=== PATIENT | male | born 1975 | race Caucasian/White ===

== ENCOUNTER 2016-12-28 09:53 | Emergency (ER) | payer BC ==
--- NOTE | 2016-12-28 10:24 | Emergency Department Report ---
Entered by MEI PASTOR, acting as scribe for ALMA VAZ PA. Chief Complaint: Chest Pain Stated Complaint: CHEST PAIN Time Seen by Provider: 12/28/16 10:12 - HPI History of Present Illness: Patient presents to the ED c/o intermittent chest pain that began 10 days ago. Denies any cough currently with chest pain. Took Pepto-Bismol with no relief. Lt side pain. HIV positive - ROS Review of Systems: All system are negative unless stated in HPI above. - Exam Vital Signs: Vital Signs 12/28/16 10:04 Temperature 97.6 F Pulse Rate 58 L Respiratory 20 Rate Blood Pressure 131/84 O2 Sat by Pulse 100 Oximetry Physical Exam: General: well nourished, well deverloped, nontoxic in appearance, in no acute distress Respiratory: lungs clear and equal bilaterally Cardiovasuclar: S1/S2 regular rate and rhythm. No murmur. MSE screening note: Focused history and physical exam performed. Due to findings the following was ordered: ED Medical Decision Making - Medical Decision Making Medical decision making: Patient seen by provider in triage area. Appropriate protocol activated and patient to main ED to be seen by provider ED Disposition for MSE Condition: Stable This documentation as recorded by the scribe,MEI PASTOR,accurately reflects the service I personally performed and the decisions made by me,ALMA VAZ PA.
[2016-12-28 10:37] LABS: Basophils % (Auto) 0.2 % (0.0-1.8); Hematocrit 45.4 % (35.5-45.6); Hemoglobin 14.7 gm/dl (11.8-15.2); Mean Corpuscular HGB Conc 32 % (32-34); Mean Corpuscular Hemoglobin 29 pg (28-32); Mean Corpuscular Volume 90 fl (84-94); Platelet Count 348 K/mm3 (140-440); Red Blood Count 5.07 M/mm3 (3.65-5.03); Red Cell Distribution Width 13.1 % (13.2-15.2); White Blood Count 13.5 K/mm3 (4.5-11.0)
[2016-12-28 10:48] LABS: Anion Gap 17 mmol/L; BUN/Creatinine Ratio 12.85; Blood Urea Nitrogen 9 mg/dL (9-20); Calcium 9.1 mg/dL (8.4-10.2); Carbon Dioxide 24 mmol/L (22-30); Chloride 100.4 mmol/L (98-107); Glucose 144 mg/dL (75-100); Lipase 32 units/L (13-60); Potassium 4.4 mmol/L (3.6-5.0); Sodium 137 mmol/L (137-145)
[2016-12-28 10:49] LABS: Creatine Kinase MB < 1.0 ng/mL (0.0-4.0)
[2016-12-28 10:51] LABS: Creatine Kinase 64 units/L (55-170)
--- NOTE | 2016-12-28 10:52 | XRay Report ---
ROUTINE CHEST, TWO VIEWS: HISTORY: Chest pain, HIV. The trachea, heart, mediastinal contour, lung romero and bony thorax are unremarkable. IMPRESSION: Unremarkable chest x-ray.
[2016-12-28] MEDS ORDERED: ZOFRAN IV ONE (12:58)
[2016-12-28] MEDS ORDERED: MORPHINE IV ONE (12:58)
[2016-12-28] MEDS ORDERED: NACL ONE (13:01)
--- NOTE | 2016-12-28 13:14 | Emergency Department Report ---
ED General Adult HPI - General Chief complaint: Chest Pain Stated complaint: CHEST PAIN Time Seen by Provider: 12/28/16 10:14 Source: patient Mode of arrival: Ambulatory Limitations: No Limitations - History of Present Illness Initial comments: 41-year-old male presents to the emergency department complaining of chest pain. Initially the patient stated he has been having cough and chest pain for the past 10 days. He was recently prescribed medication for his cough. Patient states that the cough has resolved. He states he began having left- sided abdominal pain at 4 AM this morning. He states the pain radiates into his left chest. He describes a pounding sensation. He reports associated nausea and vomiting this morning. There has been no shortness of breath, diaphoresis, dizziness, or diarrhea. There are no other complaints. -: Sudden, This morning Time: 04:00 Location: abdomen Radiation: other (chest) Severity scale (0 -10): 7 Quality: other (pounding) Consistency: constant Improves with: none Worsens with: none Associated Symptoms: nausea/vomiting Treatments Prior to Arrival: none - Related Data Home Medications Medication Instructions Recorded Confirmed Last Taken Benzonatate [Tessalon Perles] 100 mg PO Q8HR PRN 12/28/16 12/28/16 12/27/16 100 Efavirenz/Emtricita/Tenofo(Nf) 1 each PO DAILY 12/28/16 12/28/16 Unknown [Atripla (Nf)] Previous Rx's Medication Instructions Recorded Last Taken Type HYDROcodone/APAP 5-325 [[place] 1 each PO Q6HR PRN #20 tablet 12/28/16 Unknown Rx 5/325] Allergies Allergy/AdvReac Type Severity Reaction Status Date / Time No Known Allergies Allergy Unverified 12/28/16 10:03 ED Review of Systems ROS: Stated complaint: CHEST PAIN Other details as noted in HPI Comment: All other systems reviewed and negative Cardiovascular: chest pain Gastrointestinal: abdominal pain, nausea, vomiting ED Past Medical Hx - Past Medical History Previous Medical History?: Yes Hx HIV: Yes - Surgical History Past Surgical History?: No - Family History Family history: no significant - Social History Smoking Status: Never Smoker Substance Use Type: Prescribed - Medications Home Medications: Home Medications Medication Instructions Recorded Confirmed Last Taken Type Benzonatate [Tessalon Perles] 100 mg PO Q8HR PRN 04/12/28/16 12/27/16 History 100 Efavirenz/Emtricita/Tenofo(Nf) 1 each PO DAILY 12/28/16 12/28/16 Unknown History [Atripla (Nf)] HYDROcodone/APAP 5-325 [[place] 1 each PO Q6HR PRN #20 tablet 12/28/16 Unknown Rx 5/325] ED Physical Exam - General Limitations: No Limitations General appearance: alert, in no apparent distress - Head Head exam: Present: atraumatic, normocephalic - Eye Eye exam: Present: normal appearance, PERRL, EOMI - ENT ENT exam: Present: normal exam, normal orophraynx, mucous membranes moist - Neck Neck exam: Present: normal inspection, full ROM. Absent: tenderness - Respiratory Respiratory exam: Present: normal lung sounds bilaterally. Absent: respiratory distress - Cardiovascular Cardiovascular Exam: Present: regular rate, normal rhythm, normal heart sounds - GI/Abdominal GI/Abdominal exam: Present: soft, tenderness (mild diffuse tenderness to palpation), normal bowel sounds. Absent: distended, guarding, rebound - Extremities Exam Extremities exam: Present: normal inspection, full ROM. Absent: tenderness - Back Exam Back exam: Present: normal inspection, full ROM. Absent: tenderness - Neurological Exam Neurological exam: Present: alert, oriented X3. Absent: motor sensory deficit - Skin Skin exam: Present: warm, dry, intact ED Course Vital Signs 12/28/16 12/28/16 10:04 14:02 Temperature 97.6 F 98.1 F Pulse Rate 58 L 62 Respiratory 20 18 Rate Blood Pressure 131/84 Blood Pressure 113/70 [Right] O2 Sat by Pulse 100 97 Oximetry - Reevaluation(s) Reevaluation #1: 12/28/16 14:[address] results reviewed and discussed with the patient. Patient reports feeling better with medication. CT shows suggestion of gallstones with a dilated gallbladder. Patient has an elevated white blood cell count and an elevated alkaline phosphatase. Obtaining right upper quadrant ultrasound for further evaluation of the gallbladder. ED Medical Decision Making - Lab Data Result diagrams: 12/28/16 10:13 12/28/16 10:13 - EKG Data -: EKG Interpreted by [facility] EKG shows normal: sinus rhythm, axis, intervals, QRS complexes, ST-T waves Rate: bradycardia - EKG Data When compared to previous EKG there are: previous EKG unavailable Interpretation: normal EKG - Radiology Data Radiology results: report reviewed Chest x-ray shows no acute cardiopulmonary abnormalities. CT of abdomen and pelvis reveals a mildly dilated gallbladder with suggestion of cholelithiasis. There is also a 2 cm lesion in the liver suggestive of a cavernous hemangioma. There are no other acute abnormalities. Ultrasound of the right upper quadrant again shows a dilated gallbladder without evidence of cholelithiasis. Liver hemangioma is again noted. - Medical Decision Making Lab and imaging results reviewed and discussed with the patient. Patient reports feeling better with medication. Patient will be discharged home to follow up with surgery as an outpatient. - Differential Diagnosis atypical chest pain, abdominal pain, enteritis, pancreatitis Critical care attestation.: If time is entered above; I have spent that time in minutes in the direct care of this critically ill patient, excluding procedure time. ED Disposition Clinical Impression: Abdominal pain in male Disposition: DISCHARGED TO HOME OR SELFCARE Is pt being admited?: No Condition: Stable Instructions: Abdominal Pain (ED) Prescriptions: HYDROcodone/APAP 5-325 [[place] 5/325] 1 each PO Q6HR PRN #20 tablet PRN Reason: Pain Referrals: CAITLYN HU MD [Staff Physician] - 3-5 Days Time of Disposition: 16:37
[2016-12-28 13:40] LABS: Alanine Aminotransferase 37 units/L (7-56); Albumin 4.3 g/dL (3.9-5); Albumin/Globulin Ratio 1.2 %; Alkaline Phosphatase 156 units/L (35-129); Bilirubin,Total 0.3 mg/dL (0.1-1.2); Total Protein 7.8 g/dL (6.3-8.2)
[2016-12-28 13:46] LABS: Bilirubin,Direct < 0.2 mg/dL (0-0.2)
--- NOTE | 2016-12-28 13:55 | Cat Scan Report ---
CT SCAN OF THE ABDOMEN AND PELVIS WITH CONTRAST: HISTORY: Generalized abdominal pain, HIV. TECHNIQUE: Helical CT in 1.25mm intervals following IV contrast. Sagittal and coronal reconstructions. FINDINGS: Mild fatty infiltration of the liver is suspected. A 2 cm cavernous hemangioma is noted in the right hepatic lobe. The gallbladder appears borderline to mildly dilated with evidence of a partially calcified stone in the gallbladder neck. The CBD is normal caliber. Correlate for biliary symptoms. The spleen and pancreas demonstrate a normal size and attenuation with no evidence of abnormal mass. The kidneys are normal in size and position with no evidence of hydronephrosis or mass. The adrenal glands are normal. There is no intestinal obstruction or ascites. Normal appendix. The abdominal aorta is normal. No abnormalities are identified within the retroperitoneum or mesentery. There is no evidence of peritoneal air or fluid. There is no evidence of any abnormal masses or fluid collections within the pelvis. No adenopathy is identified. The bladder is normal. IMPRESSION: Mildly dilated gallbladder with suggestion of cholelithiasis. Is there a clinical concern for early acute cholecystitis? Cavernous hemangioma of the liver.
--- NOTE | 2016-12-28 15:42 | Ultrasound Report ---
RIGHT UPPER QUADRANT ULTRASOUND: HISTORY: Abdominal pain, leukocytosis, elevated alkaline phosphatase. Technique: Transabdominal ultrasound imaging with Doppler interrogation. FINDINGS: Recent CT abdomen pelvis with contrast was reviewed. The gallbladder is borderline dilated measuring 10.8 cm in length and 3.5 cm in diameter. No shadowing gallstones are identified. Gallbladder wall measures 2 mm. The CBD measures 3 mm. No convincing findings of acute cholecystitis on ultrasound. The liver is normal size and contour. 2 cm right hepatic lobe hemangioma is again noted. No suspicious liver mass. The pancreas, right kidney and aorta are within normal limits. No perihepatic ascites. IMPRESSION: Essentially unremarkable exam. No cholelithiasis is confidently identified on ultrasound. The gallbladder is borderline dilated. Cavernous hemangioma of the liver.
[2016-12-28 16:50] VITALS: BP 118/78
== END 2016-12-28 16:30 | disposition home or self-care (01) ==
LOC: ED 09:53
DX: R10.9 Unspecified abdominal pain (principal)
CPT/HCPCS: 36415; 71020; 74177; 76705; 80048; 80074; 82550; 82553; 83690; 84484; 85025; 93005; 93010; 96374; 96375; 99285; J2270; J2405; Q9967